=== PATIENT | female | born 1955 | race Caucasian/White ===

== ENCOUNTER → 2019-06-24 07:33 | Outpatient (CLI) | payer OTHER, SELFPAY ==
--- NOTE | 2019-06-24 | CA_ITS ---
APPROVED REPORT Exam: Pharmacologic Technologist: Lilibeth Llanos Ht: 5 ft 6 in Wt: 172 lbs BSA: 1.88 m2 HR: 57 bpm BP: 158/71 mmHg Indications: Shortness of Air Medical History Medications: Lisinopril,,,,, Levothyroxine,,,,, Vitamin C,,,,, Atorvastatin,,,,, Citalopram,,,,, Diclofenac,,,,, Vitamin D,,,,, Stress Test Details Test: LEXISCAN HR Resting HR: 66 bpm Max Heart Rate (APMHR): 156 bpm Max HR Achieved: 106 bpm Target HR (85% APMHR): 132 bpm % of APMHR: 67 Recovery HR: 80 bpm BP Resting BP: 158.0/71.0 mmHg Max BP: 158.0/71.0 mmHg Recovery BP: 137.0/72.0 mmHg ECG Clinical Exercise duration: 04:00 min Highest Stage Achieved: Stress ECG Conclusion Resting ECG: Sinus bradycardia, otherwise normal. Symptoms: Shortness of air, malaise, mild chest pressure. Arrhythmias/Ectopy: None ST-T Changes: Mild anterior T wave inversion, NS ST changes Conclusion: Unremarkable Lexiscan stress. Myoview images reported separately. Electronically signed by : Thomas Figueroa, 06/24/2019 15:12:33
--- NOTE | 2019-06-24 07:36 | CA_ITS ---
[facility] RADIOLOGICAL CONSULTATION Patient Name : Gretchen Landers X-RAY # : [id number] Physician: JEFF MAY AGE: 64Y : 1955 00:00:00 ( F ) Exam : CA ECHO DOPPLER COMPLETE ACC # : [id number] Study Date : 06/24/2019 09:25:37 Patient Class : O FINAL REPORT CLINICAL DATA: FINDINGS: TRANSCRIBED REPORT EXAM: Comprehensive 2D, Doppler, and color-flow Echocardiogram Guide Excursion: Mireya Wynn RT(R) Ht: 5 ft 7 in Wt: 172lbs BSA: 1.90 BP: 110/71 mmHg Indications: SOA, CP, Smoker, edema, HTN, SOB, LEBRON, hyperlipidemia, CAD 2D Dimensions Aortic Root 2.80 cm F: 2.7 - 3.3 Left Atrium 3.70 cm F: 2.7 - 3.8 LVOT 1.80 cm (M/F) 1.5-2.5 M-Mode Dimensions RVDd 1.72 cm (0.9-2.6) LA Diam 3.70 cm (1.9-4.0) LVDd 5.38 cm (3.5-5.7) Ao Diam 2.80 cm (2.0-3.7) LVDs 3.83 cm (3.5-5.7) AV Cusp 1.90 cm (1.5-2.6) IVSd 0.91 cm (0.6-1.1) PWd 0.87 cm (0.6-1.1) EF (Teich) 55.00% FS 28.80% EDV (Teich) 140.10 mL ESV (Teich) 63.10 mL LV Diastology E/A Ratio 1.11 Mitral Valve MV A Velocity 83.00 (40-130 cm/s) Electronically signed by : IMPRESSION: Dictated by at Transcribed by at
--- NOTE | 2019-06-24 07:36 | NM_ITS ---
APPROVED REPORT Exam: Nuclear Stress Test Indication: SOA, HTN, HYPERLIPIDEMIA, TOB USE, FM. HX. Patient Location: Outpatient Stress Tech: Lilibeth Llanos CT Tech:Mary TONE Zambrano RT (R)(N)(M) Ht: 5 ft 6 in Wt: 172 lbs Bra Size: 38D HR: 57 bpm BP: 158/71 mmHg BSA: 1.88 m2 BMI: 27.7 History: SOA, HTN, HYPERLIPIDEMIA, TOB USE, FM. HX. Procedure: Patient received a 0.4 mg of intravenous Lexiscan, resting heart rate 57 bpm, resting blood pressure 158/71 mmHg, with Lexiscan maximum heart rate achived was 106 bpm which is % of the maximum predicted heart rate and blood pressure was 128/72 mmHg. Cardiac Stress and Resting SPECT Images: Cardiac Stress and Resting SPECT images were obtained using technetium 99m Myoview 30.6 mCi stress and 10.56 mCi at rest. EF 65% Mild apical thinning on stress slightly less apparent on rest which may indicate some minimal ischemic change at the apex Conclusion: EF 65% Mild apical thinning on stress slightly less apparent on rest which may indicate some minimal ischemic change at the apex Electronically signed by : Tim Florez MD 06/26/2019 09:32:04
--- NOTE | 2019-06-24 08:01 | HMH.ITSHM ---
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 []LEVOTHYROXINE LISINOPRIL ATORVASTATIN DICLOFENAC CITALOPRAM VITAMIN D VITAMIN C
== END ==
PROVIDERS: PCP Internal Medicine; Visit Provider Internal Medicine
DX: I20.8 Other forms of angina pectoris (principal); I25.10 Atherosclerotic heart disease of native coronary artery without angina pectoris; E78.5 Hyperlipidemia, unspecified; F17.200 Nicotine dependence, unspecified, uncomplicated; I10 Essential (primary) hypertension
CPT/HCPCS: 78452; 93017; 93306; A9502; J2785

== ENCOUNTER → 2021-02-10 06:34 | Outpatient (CLI) | payer OTHER, SELFPAY ==
--- NOTE | 2021-02-10 06:36 | CA_ITS ---
APPROVED REPORT Exam: Pharmacologic Technologist: Vandana Sood, Ht: 5 ft 7 in Wt: 186 lbs BSA: 1.96 m2 Medical History Medical History: HTN, Hyperlipidemia Medications: Lisinopril,,,,, Alprazolam,,,,, Levothyroxine,,,,, HCTZ,,,,, Citalopram,,,,, Lipitor,,,,, Diclofenac,,,,, LoraTADINE,,,,, Allergies: No known drug allergies Cardiac Risk Factors: HTN, Hyperlipidemia, Smoking Stress Test Details Test: LEXISCAN HR Resting HR: 56 bpm Max Heart Rate (APMHR): 155.805168 bpm Max HR Achieved: 86 bpm Target HR (85% APMHR): 131.235643 bpm % of APMHR: 55.48 Recovery HR: 68 bpm BP Resting BP: 128.0/76.0 mmHg Max BP: 138.0/72.0 mmHg Recovery BP: 129.0/69.0 mmHg ECG Resting ECG: SINUS BADY Clinical Exercise duration: 04:03 min Highest Stage Achieved: Exercise capacity: 1.0 METs Stress ECG Conclusion LEXISCAN PORTION COMPLETED. PATIENT C/O NAUSEA DURING PEAK INFUSION. NO CP OR SOA DURING PEAK INFUSION. C/O NAUSEA RESOLVED IN RECOVERY. NO ECTOPY. LESS THAN 1.5MM ST DEPRESSION. IMAGES TO FOLLOW Test Summary RECOVERY 03:00 . . 67 . 134/ 70 . . REST 06:43 . . 56 . 128/ 76 . . Stage 1 . . . . . . . Myoview Injected Stage 1 01:00 . . 70 . . . . Stage 2 01:00 . . 84 . 117/ 60 . . Stage 3 01:00 . . 76 . 128/ 65 . . Stage 4 01:00 . . 71 . 135/ 71 . . Stage 4 01:03 . . 72 . 135/ 71 . Stop exercise at 04:03 RECOVERY 01:00 . . 66 . . . . RECOVERY 02:00 . . 69 . 129/ 69 . . RECOVERY 03:00 . . 67 . 134/ 70 . . RECOVERY 03:41 . . 66 . 138/ 72 . . Electronically signed by : Thomas Figueroa, 02/10/2021 12:43:49
--- NOTE | 2021-02-10 06:36 | NM_ITS ---
APPROVED REPORT Exam: Nuclear Stress Test Indication: short of breath..fatigue Patient Location: Outpatient Stress Tech: Kristyshona Sood NM Tech:Anisha AnthonyTONE RT(R)(N) Ht: 5 ft 6 in Wt: 180 lbs Bra Size: 40 b HR: 56 bpm BP: 128/76 mmHg BSA: 1.91 m2 BMI: 29.0 History: short of breath..fatigue Procedure: Patient received a 0.4 mg of intravenous Lexiscan, resting heart rate 56 bpm, resting blood pressure 128/76 mmHg, with Lexiscan maximum heart rate achived was 83 bpm which is 85 % of the maximum predicted heart rate and blood pressure was 128/65 mmHg. With Lexiscan, patient denied any complaint of chest pain. Cardiac Stress and Resting SPECT Images: Cardiac Stress and Resting SPECT images were obtained using technetium 99m Myoview 31.4 mCi stress and 10.98 mCi at rest. Ejection fraction: 57% No wall motion abnormalities. Slight decrease activity in the inferior wall toward the apex on stress images. Questionable artifact versus small area of ischemia, otherwise negative. Conclusion: Ejection fraction: 57% No wall motion abnormalities. Slight decrease activity in the inferior wall toward the apex on stress images. Questionable artifact versus small area of ischemia, otherwise negative. Electronically signed by : Tim Florez MD 02/10/2021 14:49:12
== END ==
PROVIDERS: PCP Internal Medicine; Visit Provider Physician Assistant
DX: R06.00 Dyspnea, unspecified (principal); I25.10 Atherosclerotic heart disease of native coronary artery without angina pectoris; R60.9 Edema, unspecified; I10 Essential (primary) hypertension; E78.5 Hyperlipidemia, unspecified; F17.200 Nicotine dependence, unspecified, uncomplicated; G47.33 Obstructive sleep apnea (adult) (pediatric)
CPT/HCPCS: 78452; 93017; 93306; A9502; J2785

== ENCOUNTER → 2021-02-17 08:16 | Outpatient (CLI) | payer OTHER, SELFPAY ==
--- NOTE | 2021-02-17 08:32 | CT_ITS ---
PROCEDURE: CT CHEST WO CON CLINICAL INDICATION: dyspnea COMPARISON: No exams were available for comparison TECHNIQUE: Axial images obtained with sagittal and coronal reformats. All CT scans at the facility use one or more dose reduction, viz: automated exposure control, ma/kV adjustment per patient size (including targeted exams where dose is matched to indication, i.e. head), or iterative reconstruction technique. FINDINGS: Minimal emphysematous changes with mild bibasilar scar versus atelectasis. No pulmonary consolidation or ground-glass opacities in the lungs. No discrete pulmonary nodules. Mild calcification of the thoracic aorta without aneurysm. A few small non-specific middle mediastinal lymph nodes. A few small calcified left hilar lymph nodes are present. Hilar regions otherwise grossly appear normal. No enlarged axillary nodes. No pleural effusion or pneumothorax. Great vessels off the aortic arch are normal. Images of the upper abdomen show a 3.5 centimeter low-attenuation nodule in the right adrenal gland likely adrenal adenoma. Small retrocardiac hiatal hernia noted. A few small calcifications in the spleen are present. There are moderate diffuse degenerative changes of the thoracic spine. No acute bony abnormality. IMPRESSION: Minimal emphysematous changes with mild bibasilar scar versus atelectasis. No pulmonary consolidation or ground-glass opacities in the lungs. Few small non-specific middle mediastinal lymph nodes with a few small calcified left hilar lymph nodes. 3.5 centimeter low-attenuation nodule right adrenal gland, likely adrenal adenoma. CT abdomen in 6 months recommended for close follow-up. Small retrocardiac hiatal hernia. Dictated by: Mckay Sorensen MD 02/17/2021 10:05 Mckay Sorensen MD in [facility] 02/17/2021 10:05
[2021-02-17 08:59] LABS: Blood Urea Nitrogen 25 mg/dl (7-17); Estimated Glomerular Filt Rate 72 ml/min (>60); GFR (African American) 87 ML/MIN (>60)
== END ==
PROVIDERS: Internal Medicine; PCP Internal Medicine; Visit Provider Physician Assistant
DX: R06.00 Dyspnea, unspecified (principal); I25.10 Atherosclerotic heart disease of native coronary artery without angina pectoris; I10 Essential (primary) hypertension; R60.9 Edema, unspecified; E78.5 Hyperlipidemia, unspecified; F17.200 Nicotine dependence, unspecified, uncomplicated; G47.33 Obstructive sleep apnea (adult) (pediatric)
CPT/HCPCS: 36415; 71250; 82565; 84520

== ENCOUNTER → 2021-03-08 16:29 | Outpatient (CLI) | payer OTHER, SELFPAY ==
[2021-03-08 18:12] LABS: Basophils # 0.1 K/mm3 (0-0.2); Basophils % 1.2 % (0.1-2.0); Eosinophils # 0.5 K/mm3 (0.0-0.4); Eosinophils % 5.3 % (0.1-12.0); Hematocrit 39.8 % (37.0-47.0); Hemoglobin 12.9 g/dL (12.2-16.2); Lymphocytes % 40.7 % (10-50); Mean Corpuscular HGB Conc 32.5 g/dL (31.8-35.4); Mean Corpuscular Hemoglobin 30.8 pg (27.0-31.2); Mean Corpuscular Volume 94.8 fl (81-99); Monocytes # 0.6 K/mm3 (0.1-1.0); Monocytes % 6.5 % (1.7-9.3); Neutrophils # 4.5 K/mm3 (1.8-7.8); Neutrophils % 46.2 % (37.0-80.0); Platelet Count 195 K/mm3 (142-424); Red Cell Distribution Width 13.6 % (11.5-17.5); White Blood Count 9.7 K/mm3 (4.8-10.8)
[2021-03-08 18:25] LABS: Anion Gap 12.6 mEq/L (5-15); Blood Urea Nitrogen 23 mg/dl (7-17); Calcium 9.4 mg/dl (8.4-10.2); Carbon Dioxide 24 mmol/L (22.0-30.0); Chloride 108 mmol/L (98-107); Estimated Glomerular Filt Rate 84 ml/min (>60); GFR (African American) 102 ML/MIN (>60); Glucose 95 mg/dl (74-100); Potassium 4.6 mmoL/L (3.5-5.1); Sodium 140 mmol/L (136-145)
== END ==
PROVIDERS: Visit Provider Nurse Practitioner Family
DX: E78.2 Mixed hyperlipidemia (principal); G47.33 Obstructive sleep apnea (adult) (pediatric); I10 Essential (primary) hypertension; I25.118 Atherosclerotic heart disease of native coronary artery with other forms of angina pectoris; F17.210 Nicotine dependence, cigarettes, uncomplicated; R06.00 Dyspnea, unspecified; R60.0 Localized edema; R94.31 Abnormal electrocardiogram [ECG] [EKG]; R94.39 Abnormal result of other cardiovascular function study
CPT/HCPCS: 36415; 80048; 85025; U0003

== ENCOUNTER 2021-03-09 10:55 | Day surgery (SDC) | payer OTHER, SELFPAY ==
[2021-03-09] VITALS (9 sets, daily range): BP systolic 162–204; BP diastolic 76–108; PULSE 49–60; RESP 16–18; TEMP 36.8; O2SAT 94–96; BMI 29.6
--- NOTE | 2021-03-09 07:07 | IR_ITS ---
APPROVED REPORT Patient Location: Outpatient Workforce Management Analyst: TONE Fan RT (R) PROCEDURES Left heart catheterization left ventriculogram selective coronary angiogram INDICATION Abnormal Myoview inferior ischemia, angina pectoris/atypical, Informed consent was obtained prior to the procedure. COMPLICATIONS NONE Estimated Blood Loss: LESS THAN 10 ML TECHNIQUE One percent lidocaine used to anesthetize the right anterior aspect of the wrist. The right radial artery was accessed via the Seldinger technique. A 6 Icelandic sheath was placed in the right radial artery. 2.5 mg of verapamil, 800 mcg of nitroglycerin, 1mg Lidocaine and 5000 U Heparin were given through the arterial sheath. The trap catheter was also used to perform left heart catheterization, left ventriculogram and selective coronary angiogram. At the end of the procedure the sheath was removed good hemostasis was achieved using Traclet band, patient was transferred to the postop holding area in stable condition. ANGIOGRAPHIC RESULTS The left main artery Normal The left anterior descending artery Is proximally normal then has mid vessel 10 to 20% stenosis with an additional 40% stenosis along a tortuous bend in the LAD which is worse during systole not because of myocardial compression but shortening of the mid LAD and worsening along the tortuosity. First diagonal artery has 10 to 20% luminal irregularities The circumflex artery Is codominant and proximally normal with a mid vessel 30 to 40% stenosis The right coronary artery Is codominant and has proximal 30 followed by 50 followed by an additional mid vessel 50% stenosis. The DRUMMOND ventriculogram reveals Hyperdynamic 70% The left ventricular end-diastolic pressure Moderate to severely elevated at 25 mmHg IMPRESSION Coronary disease as described above hyperdynamic ventricle consistent with diastolic dysfunction elevated LVEDP also consistent with diastolic dysfunction PLAN 1. Although there is an inferior wall defect which does correspond to the right coronary artery lesion I am more in favor of medical management at this time. Patient has a hyperdynamic ventricle with elevated LVEDP which is likely the etiology for her dyspnea shortness of breath and atypical angina. I believe this should be aggressively treated with fluid restriction and negative inotropes such as verapamil or diltiazem and or possibly beta-blockers 2. Fluid restriction with diuretics in order to decrease LVEDP 3. Maximize antianginal medication 4. After patient has had her diastolic heart failure treated and maximized on antianginal medications, if she should continue to experience angina pectoris I would consider bringing her back to the [facility] and stenting the right coronary artery. Currently I believe her symptoms almost certainly stemming from the diastolic heart failure. An FFR would not be appropriate at this time given the severely elevated LVEDP which is a contraindication to FFR Electronically signed by : Thomas Figueroa, 03/09/2021 14:26:32
== END 2021-03-09 16:06 | disposition home or self-care (01) ==
LOC: CATHLAB 11:03
PROVIDERS: PCP Internal Medicine; Visit Provider Internal Medicine
DX: I25.118 Atherosclerotic heart disease of native coronary artery with other forms of angina pectoris (principal); E78.2 Mixed hyperlipidemia; F17.210 Nicotine dependence, cigarettes, uncomplicated; G47.33 Obstructive sleep apnea (adult) (pediatric); I10 Essential (primary) hypertension; R06.00 Dyspnea, unspecified
CPT/HCPCS: 93458; 99152; C1725; C1769; J1644; Q9967

== ENCOUNTER → 2021-11-10 09:59 | Outpatient (CLI) | payer MEDICARE, SELFPAY | PROVIDERS: PCP Internal Medicine; Visit Provider Specialist | DX: G47.33 Obstructive sleep apnea (adult) (pediatric) (principal); I25.10 Atherosclerotic heart disease of native coronary artery without angina pectoris; I10 Essential (primary) hypertension | CPT/HCPCS: G0399 ==

== ENCOUNTER → 2021-11-20 14:46 | Outpatient (CLI) | payer MEDICARE, SELFPAY ==
[2021-11-20 15:48] LABS: Basophils # 0.1 K/mm3 (0-0.2); Basophils % 1.2 % (0.1-2.0); Eosinophils # 0.5 K/mm3 (0.0-0.4); Eosinophils % 4.9 % (0.1-12.0); Hemoglobin 12.5 g/dL (12.2-16.2); Lymphocytes # 3.7 K/mm3 (0.7-4.5); Mean Corpuscular HGB Conc 33.1 g/dL (31.8-35.4); Mean Corpuscular Volume 96.7 fl (81-99); Mean Platelet Volume 9.5 fl (7.4-10.4); Monocytes # 0.6 K/mm3 (0.1-1.0); Monocytes % 5.7 % (1.7-9.3); Neutrophils # 5.6 K/mm3 (1.8-7.8); Neutrophils % 53.3 % (37.0-80.0); Platelet Count 223 K/mm3 (142-424); Red Blood Count 3.93 M/mm3 (4.20-5.40); Red Cell Distribution Width 12.7 % (11.5-17.5); White Blood Count 10.5 K/mm3 (4.8-10.8)
[2021-11-20 17:06] LABS: Alanine Aminotransferase 18 U/L (12-78); Albumin Level 4.3 g/dl (3.5-5.0); Alkaline Phosphatase 44 U/L (38-126); Aspartate Amino Transferase 23 U/L (14-36); Bilirubin,Direct 0.2 mg/dl (0.0-0.4); Bilirubin,Indirect 0.3 mg/dL (0.0-0.9); Bilirubin,Total 0.5 mg/dl (0.2-1.3); Bilirubin,Unconjugated 0.3 mg/dL (0.0-1.1); Blood Urea Nitrogen 26 mg/dl (7-17); Calcium 9.8 mg/dl (8.4-10.2); Carbon Dioxide 25 mmol/L (22.0-30.0); Chloride 105 mmol/L (98-107); Cholesterol 163 mg/dl (140-200); Estimated Glomerular Filt Rate 55 ml/min (>60); GFR (African American) 67 ML/MIN (>60); Glucose 128 mg/dl (74-100); HDL Cholesterol 41 mg/dl (40-60); Sodium 139 mmol/L (136-145); Total Protein,Serum 6.9 g/dl (6.3-8.2); Triglycerides 191 mg/dl (30-150); VLDL Cholesterol 38 mg/dL (0-40)
[2021-11-20 17:17] LABS: Direct LDL Cholesterol 80.96 mg/dL (100-129)
== END ==
PROVIDERS: Visit Provider Nurse Practitioner Family
DX: E78.5 Hyperlipidemia, unspecified (principal); G47.33 Obstructive sleep apnea (adult) (pediatric); I10 Essential (primary) hypertension; I20.8 Other forms of angina pectoris; I49.8 Other specified cardiac arrhythmias
CPT/HCPCS: 36415; 80048; 80061; 80076; 85025